=== PATIENT | female | born 1990 | race American Indian/Alaskan Native ===

== ENCOUNTER 2020-11-22 13:10 | Emergency (ER) | payer OTHER ==
--- NOTE | 2020-11-22 13:44 | Emergency Department Report ---
- General Stated Complaint: VOMITING,MIGRAINES,CONGESTION, BLOOD IN MUCUS Time Seen by Provider: 11/22/20 13:34 - History of Present Illness Initial Comments: Patient presents with multiple complaints. She has been sick including nausea with vomiting intermittently. She is had cough and congestion. She states that she just does not feel well. 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 She has no known coronavirus exposure however. She has had no known influenza exposure. Patient states that she came here just because she was not feeling well. She denies hematemesis or coffee-ground emesis on an ongoing basis. There has been no melanotic stool. She has no dysuria or frequency. There has been no rash. She does not have significant muscle aches or body aches. She has not lost taste or smell. - Related Data Previous Rx's Medication Instructions Recorded Last Taken Type Albuterol Sulfate [Proair 90 mcg IH 4XD #1 aer.pow.ba 11/22/20 Unknown Rx Respiclick] Benzonatate [Tessalon Perles] 100 mg PO Q8HR #20 capsule 11/22/20 Unknown Rx Ondansetron [Zofran Odt] 4 mg PO Q8HR PRN #20 tab.rapdis 11/22/20 Unknown Rx Allergies Allergy/AdvReac Type Severity Reaction Status Date / Time No Known Allergies Allergy Verified 11/22/20 13:58 ED Review of Systems ROS: Stated complaint: VOMITING,MIGRAINES,CONGESTION, BLOOD IN MUCUS Other details as noted in HPI Comment: All other systems reviewed and negative Constitutional: see HPI Eyes: denies: eye discharge ENT: denies: ear pain Respiratory: see HPI Cardiovascular: denies: chest pain Endocrine: denies: unexplained weight loss Gastrointestinal: as per HPI Genitourinary: denies: dysuria Musculoskeletal: denies: back pain Skin: denies: rash Neurological: headache Hematological/Lymphatic: denies: easy bruising ED Past Medical Hx - Past Medical History Previous Medical History?: Yes Hx Headaches / Migraines: Yes - Family History Family history: no significant - Medications Home Medications: Home Medications Medication Instructions Recorded Confirmed Last Taken Type Albuterol Sulfate [Proair 90 mcg IH 4XD #1 aer.pow.ba 11/22/20 Unknown Rx Respiclick] Benzonatate [Tessalon Perles] 100 mg PO Q8HR #20 capsule 11/22/20 Unknown Rx Ondansetron [Zofran Odt] 4 mg PO Q8HR PRN #20 tab.rapdis 11/22/20 Unknown Rx ED Physical Exam - General Limitations: Other (Pulse ox is noted and normal.) General appearance: alert, in no apparent distress - Head Head exam: Present: atraumatic, normocephalic - Eye Eye exam: Present: normal appearance, EOMI. Absent: scleral icterus - ENT ENT exam: Present: normal exam, normal orophraynx, normal external ear exam - Neck Neck exam: Present: normal inspection. Absent: meningismus - Respiratory Respiratory exam: Present: normal lung sounds bilaterally. Absent: respiratory distress - Cardiovascular Cardiovascular Exam: Present: regular rate, normal rhythm - GI/Abdominal GI/Abdominal exam: Present: soft. Absent: distended - Extremities Exam Extremities exam: Present: normal capillary refill - Back Exam Back exam: Present: full ROM - Neurological Exam Neurological exam: Present: alert, oriented X3, normal gait - Psychiatric Psychiatric exam: Present: normal affect, normal mood - Skin Skin exam: Present: warm, dry ED Course Vital Signs 11/22/20 13:55 Temperature 98.1 F Pulse Rate 64 Respiratory 16 Rate Blood Pressure 123/87 [Left] O2 Sat by Pulse 97 Oximetry - Reevaluation(s) Reevaluation #1: 11/22/20 13:43 Chest x-ray was ordered. Reevaluation #2: 11/22/20 14:25 Chest x-ray was noted. Patient was discharged. ED Medical Decision Making - Medical Decision Making Patient presented with a constellation of symptoms that certainly could be concerning for coronavirus. She does not have radiographic evidence of Covid. There is no pneumonia. Patient can be referred for outpatient evaluation and follow-up. She can undergo outpatient testing for coronavirus. She does not require emergent testing. She does not require admission. She does not appear to be septic or toxic. She is not in respiratory failure. There has been no ongoing vomiting. Critical Care Time: No Critical care attestation.: If time is entered above; I have spent that time in minutes in the direct care of this critically ill patient, excluding procedure time. ED Disposition Clinical Impression: Acute URI, Nausea Migraine Qualifiers: Migraine type: unspecified Status migrainosus presence: without status migrainosus Intractability: not intractable Qualified Code(s): G43.909 - Migraine, unspecified, not intractable, without status migrainosus Disposition: 01 HOME / SELF CARE / HOMELESS Is pt being admited?: No Does the pt Need Aspirin: No Condition: Stable Instructions: Nausea, Adult, Viral Respiratory Infection, [id number], Recurrent Migraine Headache, [id number] Additional Instructions: Drink plenty water. Return for problems. Follow-up with your regular doctor. Use Tylenol for fever and pain. Prescriptions: Albuterol Sulfate [Proair Respiclick] 90 mcg IH 4XD #1 aer.pow.ba Benzonatate [Tessalon Perles] 100 mg PO Q8HR #20 capsule Ondansetron [Zofran Odt] 4 mg PO Q8HR PRN #20 tab.rapdis PRN Reason: Nausea Referrals: PRIMARY CAREMD [Referring] - 3-5 Days JANELLE TREVIÑO MD [Staff Physician] - 3-5 Days Forms: Work/School Release Form(ED)
[2020-11-22 13:57] VITALS: BP 123/87
--- NOTE | 2020-11-22 14:21 | XRay Report ---
CHEST 2 VIEWS INDICATION / CLINICAL INFORMATION: Cough. COMPARISON: None available. FINDINGS: SUPPORT DEVICES: None. HEART / MEDIASTINUM: The heart size and pulmonary vasculature are normal. LUNGS / PLEURA: No significant pulmonary or pleural abnormality. No pneumothorax. ADDITIONAL FINDINGS: There are bilateral nipple piercings. IMPRESSION: No acute findings. Signer Name: Indio Cornejo MD Signed: 11/22/2020 2:17 PM Workstation Name: [id number]
== END 2020-11-22 14:52 | disposition home or self-care (01) ==
LOC: ED 13:10
DX: J06.9 Acute upper respiratory infection, unspecified (principal); R11.0 Nausea; G43.909 Migraine, unspecified, not intractable, without status migrainosus
CPT/HCPCS: 71046; 99283